=== PATIENT | male | born 1965 | race Caucasian/White ===

== ENCOUNTER → 2025-01-10 14:03 | Outpatient (BNVA) | payer OTHER, SELFPAY | PROVIDERS: Visit Provider Orthopaedic Surgery | DX: S32.010A Wedge compression fracture of first lumbar vertebra, initial encounter for closed fracture (principal); W19.XXXA Unspecified fall, initial encounter | CPT/HCPCS: 72100 ==

== ENCOUNTER 2025-02-01 09:41 | Outpatient (CLI) | payer OTHER, BC, SELFPAY ==
[2025-02-01 10:08] LABS: Glucose Urine UA Negative (Normal); Nitrate Urine Negative (Negative); Specific Gravity, Urine 1.025 (1.005-1.030)
[2025-02-01 10:09] LABS: Hematocrit 38.7 % (37-53); Hemoglobin 13.60 g/dL (11.27-16.99); Mean Corpuscular HGB Conc 35.1 g/dL (30-55); Mean Corpuscular Hemoglobin 31.3 pg (27-33); Mean Corpuscular Volume 89.0 fl (82-101); Nucleated Red Blood Cells % 0 %; Platelet Count 274 10^3/cmm (157-399); Red Blood Count 4.35 10^6/uL (3.85-5.65); White Blood Count 9.24 10^3/uL (3.29-11.43)
[2025-02-01 10:13] LABS: Add Urine Microscopic? YES
[2025-02-01 10:30] LABS: Alanine Aminotransferase 55 U/L (0-41); Albumin Level 4.4 g/dL (3.5-5.2); Alkaline Phosphatase 115 U/L (40-130); Anion Gap 17.2 (5-19); Aspartate Amino Transferase 26 U/L (0-40); Blood Urea Nitrogen 18 mg/dL (6-20); Calcium 9.4 mg/dL (8.5-10.5); Carbon Dioxide 26 mmol/L (22-29); Chloride 101 mmol/L (98-107); Globulin 3.1 g/dL (1.3-4.6); Glucose 109 mg/dL (65-115); Osmolality Calculated 292 mOsm/kg (285-295); Potassium 4.2 mmol/L (3.5-5.1); Sodium 140 mmol/L (136-145); Total Protein 7.5 g/dL (6.6-8.7)
== END 2025-02-01 09:42 | disposition home or self-care (01) ==
LOC: LAB 09:47
PROVIDERS: PCP Orthopaedic Surgery; Visit Provider Orthopaedic Surgery
DX: Z01.818 Encounter for other preprocedural examination (principal)
CPT/HCPCS: 36415; 80053; 81001; 85025